=== PATIENT | male | born 1980 | race Caucasian/White ===

== ENCOUNTER 2021-05-18 | Inpatient (IN) | payer OTHER | END 2021-05-20 14:29 | disposition home or self-care (01) | DRG 897 | PROVIDERS: ADMIT Internal Medicine | DX: F10.239 Alcohol dependence with withdrawal, unspecified (principal); K70.10 Alcoholic hepatitis without ascites; Y90.6 Blood alcohol level of 120-199 mg/100 ml; R00.0 Tachycardia, unspecified; E83.42 Hypomagnesemia; E87.6 Hypokalemia; M79.605 Pain in left leg; M79.604 Pain in right leg; F17.210 Nicotine dependence, cigarettes, uncomplicated; F32.9 Major depressive disorder, single episode, unspecified; I10 Essential (primary) hypertension; Z56.0 Unemployment, unspecified; Z20.822 Contact with and (suspected) exposure to COVID-19; Z79.899 Other long term (current) drug therapy | CPT/HCPCS: 36415; 80053; 80306; 80320; 81003; 82550; 83735; 85025; 85610; 85730; 87635; 93005; 93970; 96360; 99285 ==

== ENCOUNTER 2022-06-07 09:30 | Emergency (ER) | payer OTHER ==
--- NOTE | 2022-06-07 11:14 | XR ---
EXAMINATION TYPE: XR chest 2V DATE OF EXAM: 06/07/2022 COMPARISON: NONE HISTORY: Cough TECHNIQUE: Frontal and lateral views of the chest are obtained. FINDINGS: There is no focal air space opacity, pleural effusion, or pneumothorax seen. The cardiac silhouette size is within normal limits. Prominent lung volume may be indicative of underlying COPD. The osseous structures are intact. IMPRESSION: No acute cardiopulmonary process.
--- NOTE | 2022-06-07 11:31 | ED ---
URI HPI - General Chief Complaint: Upper Respiratory Infection Stated Complaint: Possible COVID Time Seen by Provider: 06/07/22 10:17 Source: patient, RN notes reviewed Mode of arrival: ambulatory Limitations: no limitations - History of Present Illness Initial Comments: 41-year-old male presents emergency Department with chief complaint of cough congestion. Patient states she's been sick since Saturday. Patient states that he initially Zosyn. Patient states that her daughter was recently sick. Patient had fevers chills bodyaches cough congestion. Patient denies any other associated symptoms. - Related Data Home Medications Medication Instructions Recorded Confirmed Acetaminophen Tab [Tylenol] 500 mg PO Q6H PRN 05/18/21 05/18/21 Previous Rx's Medication Instructions Recorded Nicotine 21Mg/24Hr Patch [Habitrol] 1 each TRANSDERM DAILY 7 Days #7 05/20/21 patch Thiamine [Vitamin B-1] 100 mg PO BID-W/MEALS #20 tab 05/20/21 carvediloL [Coreg] 6.25 mg PO BID-W/MEALS #60 tab 05/20/21 Azithromycin [Zithromax Z Pack] 0 tab PO DIRECTED #6 tab 06/07/22 predniSONE 50 mg PO DAILY #5 tab 06/07/22 Allergies Allergy/AdvReac Type Severity Reaction Status Date / Time No Known Allergies Allergy Verified 06/07/22 09:38 Review of Systems ROS Statement: Those systems with pertinent positive or pertinent negative responses have been documented in the HPI. ROS Other: All systems not noted in ROS Statement are negative. Past Medical History Past Medical History: No Reported History History of Any Multi-Drug Resistant Organisms: None Reported Past Surgical History: No Surgical Hx Reported Past Anesthesia/Blood Transfusion Reactions: No Reported Reaction Past Psychological History: Depression Smoking Status: Current every day smoker Past Alcohol Use History: Daily Past Drug Use History: Marijuana General Exam Limitations: no limitations General appearance: alert, in no apparent distress Head exam: Present: atraumatic, normocephalic, normal inspection Eye exam: Present: normal appearance, PERRL, EOMI. Absent: scleral icterus, conjunctival injection, periorbital swelling ENT exam: Present: normal exam, normal oropharynx, mucous membranes moist Neck exam: Present: normal inspection, full ROM. Absent: tenderness, meningismus, lymphadenopathy Respiratory exam: Present: normal lung sounds bilaterally. Absent: respiratory distress, wheezes, rales, rhonchi, stridor Cardiovascular Exam: Present: normal rhythm, tachycardia, normal heart sounds. Absent: systolic murmur, diastolic murmur, rubs, gallop, clicks Course Vital Signs 06/07/22 06/07/22 09:33 10:27 Temperature 98.6 F Pulse Rate 110 H Respiratory 18 24 Rate Blood Pressure 159/103 O2 Sat by Pulse 98 Oximetry Medical Decision Making - Medical Decision Making Patient's x-ray, COVID-19, influenza is negative. Patient has acute bronchitis, upper respiratory infection. Patient was discharged in stable condition patient agrees with plan. Return parameters discussed. - Lab Data Lab Results 06/07/22 06/07/22 Range/Units 10:25 10:25 Coronavirus (PCR) Not Detected (Not Detectd) Influenza Type A RNA Not Detected (Not Detectd) Influenza Type B (PCR) Not Detected (Not Detectd) Disposition Clinical Impression: Acute upper respiratory infection, Bronchitis Disposition: HOME SELF-CARE Condition: Stable Instructions (If sedation given, give patient instructions): Upper Respiratory Infection (ED) Additional Instructions: Please return to the Emergency Department if symptoms worsen or any other concerns. Prescriptions: predniSONE 50 mg PO DAILY #5 tab Azithromycin [Zithromax Z Pack] 0 tab PO DIRECTED #6 tab Is patient prescribed a controlled substance at d/c from ED?: No Referrals: None,Stated [Primary Care Provider] - 1-2 days Time of Disposition: 11:31
[2022-06-07 11:46] VITALS: BP 153/114; PULSE 107; RESP 23; TEMP 98.2
== END 2022-06-07 11:45 | disposition home or self-care (01) ==
LOC: EC 09:30
DX: J40 Bronchitis, not specified as acute or chronic (principal); F17.200 Nicotine dependence, unspecified, uncomplicated; Z20.822 Contact with and (suspected) exposure to COVID-19
CPT/HCPCS: 71046; 87502; 87635